=== PATIENT | male | born 1980 | race Caucasian/White ===

== ENCOUNTER 2023-12-10 17:57 | Emergency (ER) | payer OTHER ==
--- NOTE | 2023-12-10 19:51 | RAD REPORT ---
EXAM DESCRIPTION: US - Extrem Venous W Compress [place] - 12/10/2023 7:46 pm CLINICAL HISTORY: pain Bilateral leg edema and swelling. COMPARISON: <Comparisons> TECHNIQUE: Real-time sonographic interrogation of the left and right lower extremity deep venous sys tems was performed. FINDINGS: Normal compressibility, flow augmentation, phasic flow and spontaneous flow is identified in both the left and right lower extremity deep venous systems. IMPRESSION: No sonographic evidence of left or right lower extremity deep venous thrombosis.
[2023-12-10] MEDS ORDERED: ONDANSETRON 4 MG/2 ML VIAL ONE (19:52)
--- NOTE | 2023-12-10 19:52 | RAD REPORT ---
EXAM DESCRIPTION: US - Lower Extremity Arterial Bilat - 12/10/2023 7:46 pm CLINICAL HISTORY: pain Pain and swelling COMPARISON: <Comparisons> TECHNIQUE: Bilateral lower extremity arterial Doppler examination was performed. FINDINGS: Triphasic waveforms are seen throughout both lower extremity arterial systems to the level of the robin salis pedis arteries. No high-grade stenosis or occlusion seen. IMPRESSION: No significant or worrisome flow abnormality seen.
[2023-12-10] MEDS ORDERED: MORPHINE 4 MG/ML SYR ONE (19:53)
[2023-12-10] MEDS ORDERED: NA CHLORIDE 0.9% 1,000 ML ONE (19:53)
--- NOTE | 2023-12-10 20:13 | RAD REPORT ---
EXAM DESCRIPTION: RAD - Femur Left - 12/10/2023 8:04 pm CLINICAL HISTORY: pain COMPARISON: <Comparisons> FINDINGS: No bone or joint abnormality seen.
[2023-12-10] MEDS ORDERED: HYDROCODONE/APAP 5/325 MG TAB ONE (20:23)
[2023-12-10 20:25] LABS: Absolute Basophils 0.1 K/uL (0-0.5); Absolute Eosinophils 0.3 K/uL (0-0.5); Absolute Lymphocytes (CBC) 2.5 K/uL (0.7-4.9); Absolute Monocytes 0.4 K/uL (0.1-1.3); Absolute Neutrophil 5.4 K/uL (1.8-8.0); Basophils % 1.7 % (0-1.3); Eosinophils % 2.9 % (0-4.4); Hematocrit 40.1 % (39.6-49.0); Hemoglobin 13.7 g/dL (13.6-17.9); Lymphocytes % 28.6 % (15.3-44.8); MCH 31.2 pg (27.0-35.0); MCHC 34.2 g/dL (32.0-36.0); MCV 91.1 fL (80-100); MPV 6.6 fL (7.6-11.3); Neutrophils % 61.8 % (41.7-73.7); Nucleated Red Blood Cells % 0.3 % (0-0); Platelets 380 thou/uL (152-406); RBC Red Blood Cell Count 4.41 M/uL (4.33-5.43); Red Cell Distribution Width 14.1 % (12.1-15.2)
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
[2023-12-10 20:44] LABS: Albumin 3.1 g/dL (3.4-5.0); Albumin/Globulin Ratio 1.1 (1.1-1.8); Anion Gap 5.7 mEq/L (5.0-15.0); Bilirubin Total 0.4 mg/dL (0.2-1.0); Globulin 2.9 g/dL (2.3-3.5); Potassium 3.7 mEq/L (3.5-5.1)
[2023-12-10 22:15] VITALS: BP 109/70; TEMP 98; O2SAT 98
== END 2023-12-10 21:53 | disposition home or self-care (01) ==
LOC: ER 17:57
DX: M79.605 Pain in left leg (principal); Z72.0 Tobacco use
CPT/HCPCS: 85025; 36415; 80053; 73552 ×2; 93925; 93970; 96374; 99284; J2405; J7030

== ENCOUNTER 2024-03-05 01:22 | Emergency (ER) | payer OTHER ==
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
[2024-03-05 06:48] VITALS: TEMP 97.7
[2024-03-05 06:52] VITALS: BP 112/83; O2SAT 96
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
== END 2024-03-05 06:43 | disposition home or self-care (01) ==
LOC: ER 01:22
DX: S06.0X0A Concussion without loss of consciousness, initial encounter (principal); S00.83XA Contusion of other part of head, initial encounter; F10.129 Alcohol abuse with intoxication, unspecified; F17.210 Nicotine dependence, cigarettes, uncomplicated
CPT/HCPCS: 70450; 70486; 72125; 76377; 99283